=== PATIENT | female | born 1980 | race Caucasian/White ===

== ENCOUNTER 2017-07-13 15:31 | Inpatient (IN) | payer OTHER ==
[~2017-07-13] VITALS: Ht 157.5 cm; Wt 78.5 kg
--- NOTE | 2017-07-13 15:53 | NUR ---
PT BIB FAMILY MEMBER FOR C/O FEELING SHORTNESS OF BREATH WITH COUGH, PT REPORTS HX OF ASTHMA AND REPORTS USING HER VENTOLIN AND QVAR TODAY WITH NO RELIEF, PT REPORTS "EVER SINCE HALLOWEEN NIGHT" PT HAS HAD SX OF SOB AND COUGH, ACTIVE CONGESTED COUGHING NOTED AT THIS TIME WITH WHEEZING HEARD UPON AUSCULTATION, RR 20-22, RESP EVEN AND SLIGHTLY LABORED UPON SPEAKING, PT DENIES CHEST PAIN BUT REPORTS FEELING "TIGHTNESS 1-2/10" TO PTS UPPER BACK, PT IN NO ACUTE DISTRESS, PLACED ON FULL MONITORS, CALL LIGHT WITHIN REACH, WILL CONTINUE TO MONITOR
--- NOTE | 2017-07-13 15:56 | NUR ---
RT AT BEDSIDE ADMINISTERED BREATHING TREATMENT PER NURSING PROTOCOL
--- NOTE | 2017-07-13 16:48 | NUR ---
MSE COMPLETED BY DR. STUART
--- NOTE | 2017-07-13 16:56 | NUR ---
RT AT BEDSIDE FOR ORDERED BREATHING TX AT THIS TIME
--- NOTE | 2017-07-13 17:09 | NUR ---
PT MEDICATED PER MD ORDER, PLEASE SEE EMAR, PT TOLERATED WELL, FAMILY MEMBER AT BEDSIDE, PT PLACED ON FULL MONITORS, CALL LIGHT WITHIN REACH, WILL CONTINUE TO MONITOR
--- NOTE | 2017-07-13 18:21 | NUR ---
PT AMBULATORY WITH STEADY GAIT TO RESTROOM AND BACK TO TX AREA WITH NO INCIDENCE
--- NOTE | 2017-07-13 18:42 | NUR ---
DR. STUART AT BEDSIDE DISCUSSING POC WITH PT AT THIS TIME
--- NOTE | 2017-07-13 18:50 | NUR ---
LAB AT BEDSIDE FOR BLOOD DRAW AND BLOOD CULTURES
--- NOTE | 2017-07-13 19:10 | NUR ---
[facility] SWAB COLLECTED AND SENT TO LAB
--- NOTE | 2017-07-13 19:10 | NUR ---
RT AT BEDSIDE FOR ABGS
--- NOTE | 2017-07-13 19:15 | NUR ---
RECEIVED REPORT FROM CARLA ZHU.
[2017-07-13] MEDS ORDERED: SINGULAIR10 MG PO (19:16)
[2017-07-13] MEDS ORDERED: VENTOLIN H0.09 MG/A1 IH (19:17)
[2017-07-13] MEDS ORDERED: QVAR0.08 MG/Ac IH (19:17)
[2017-07-13] MEDS ORDERED: CLARITIN10 MG PO (19:17)
[2017-07-13 19:33] LABS: BASOPHIL % 0.1 % (0-2); PLATELET COUNT 221 x10^3mcL (130-400); RED CELL DISTRIBUTION WIDTH 13.2 % (11.5-14.5)
[2017-07-13 19:39] LABS: CARBON DIOXIDE 24.6 mmol/L (21-32); CHLORIDE SERUM 103 mmol/L (98-107); CREATININE SERUM 0.8 mg/dL (0.6-1.0); GFR1 > 60 mL/min; GLUCOSE SERUM 104 mg/dL (74-106); POTASSIUM SERUM 3.2 mmol/L (3.5-5.1); SODIUM SERUM 138 mmol/L (136-145)
[2017-07-13 19:48] LABS: ALBUMIN 3.7 g/dL (3.4-5.0); ALKALINE PHOSPHATASE 79 U/L (46-116); ALT/SGPT 23 U/L (14-59); AST/SGOT 15 U/L (15-37); BILIRUBIN TOTAL 0.38 mg/dL (0.20-1.00); HDL CHOLESTEROL 38 mg/dL (40-60); LIPASE 94 IU/L (73-393)
[2017-07-13 19:51] LABS: CHOLESTEROL 204 mg/dL (<200); CHOLESTEROL/HDL RATIO 5.4; TRIGLYCERIDES 287 mg/dL (<150)
[2017-07-13 19:55] LABS: FREE T4 0.76 ng/dL (0.76-1.46); FREE THYROXINE INDEX 2.5 ug/dL (1.4-4.5); T4(THYROXINE) 8.9 ug/dL (4.7-13.3)
[2017-07-13 20:09] LABS: T3 TOTAL 1.27 ng/mL
--- NOTE | 2017-07-13 20:30 | NUR ---
PT RESTING IN BED AFTER USING RESTROOM. NO SIGNS OF DISTRESS AT THIS TIME.
[2017-07-13 20:33] LABS: microscopic required? YES; urine erythrocyte 1+ (NEGATIVE)
[2017-07-13 20:42] LABS: AMPHETAMINE QUAL UR NONE DETECTED (NEG <=1000)
[2017-07-13 21:00] LABS: PHOSPHOROUS 2.6 mg/dL (2.5-4.9)
--- NOTE | 2017-07-13 21:16 | NUR ---
PT RESTING IN BED WITH SISTER AT BEDSIDE. NO SIGNS OF DISTRESS AT THIS TIME.
[2017-07-13 22:25] VITALS: BP 142/92
--- NOTE | 2017-07-13 22:25 | NUR ---
V/S AFTER NS BOLUS FROM ER FF: JB=598/92 IE=349 JOJ=550 RR=16 TEMP=97.1 O2 SAT=97% ON RA.
--- NOTE | 2017-07-13 22:31 | NUR ---
RECEIVED PATIENT FROM ED VIA GUERNEY, PATIENT ALERT AND ORIENTED, TELE # 1 ST, IV ACCESS TO LEFT HAND WNL, NO C/O PAIN AT THIS TIME, ORIENTED PATIENT TO ROOM AND SURROUNDINGS, BED IN LOW POSITION, BED RAILS UP X 2, CALL LIGHT WITHIN REACH, WILL ENDORSE CARE TO PRIMARY NURSE LIAM Grijalva RN
[2017-07-13 22:48] VITALS: BP 142/92
[2017-07-14 01:10] VITALS: BP 142/92
--- NOTE | 2017-07-14 01:19 | NUR ---
RICHY CARTER REGARDING LATEST LACTIC ACID OF 3.8 ( PREVIOUS=2.9).
[2017-07-14 05:35] VITALS: BP 119/69
[2017-07-14 06:05] LABS: PLATELET COUNT 229 x10^3mcL (130-400); RED CELL DISTRIBUTION WIDTH 13.3 % (11.5-14.5)
--- NOTE | 2017-07-14 06:09 | NUR ---
PT RESTING COMFORTABLY ON BED. SHE SLEPT ON AND OFF. SHE VERBALIZED SHE IS BREATHING BETTER. SHE HAD NO C/O PAIN. LATEST O2 SAT IS 96 % ON RA. SHE IS AMBULATORY W/O DIFFICULTY.
[2017-07-14 06:16] LABS: CALCIUM 8.4 mg/dL (8.5-10.1); CARBON DIOXIDE 20.8 mmol/L (21-32); CHLORIDE SERUM 108 mmol/L (98-107); CREATININE SERUM 0.8 mg/dL (0.6-1.0); GFR1 > 60 mL/min; GLUCOSE SERUM 146 mg/dL (74-106); POTASSIUM SERUM 3.9 mmol/L (3.5-5.1); SODIUM SERUM 139 mmol/L (136-145)
--- NOTE | 2017-07-14 06:40 | NUR ---
RICHY CARTER REGARDING LATEST LACTIC ACID OF 2.1 ( PREVIOUS=3.8).
[2017-07-14 06:46] LABS: BASOPHIL % 0 % (0-2)
--- NOTE | 2017-07-14 07:48 | NUR ---
A+OX4, NO RESPIRATORY DISTRESS NOTED, DENIES PAIN, TELE 1, PULSES MODERATE AND EQUAL INDIO, NO EDEMA PRESENT, LUNG SOUNDS: WHEEZING, TOELRATING RA, BOWEL SOUNDS ACTIVE, VOIDING, AMBULATORY, SKIN INTACT, IV IN LH WITH NS @ 120 ML/HR, SITE WNL, CL 108, CO2 20.8, LACTIC ACID 2.1, CA 8.4.
--- NOTE | 2017-07-14 08:30 | NUR ---
PT RECEIVING BREATHING TREATMENT FROM RT.
--- NOTE | 2017-07-14 08:50 | NUR ---
PT RESTING IN BED, NO RESPIRATORY DISTRESS NOTED, DENIES PAIN.
[2017-07-14 09:21] VITALS: BP 140/82
--- NOTE | 2017-07-14 09:24 | NUR ---
PT RESTING IN BED, NO RESPIRATORY DISTRESS NOTED, DENIES PAIN.
--- NOTE | 2017-07-14 10:24 | NUR ---
PT RESTING IN BED, NO RESPIRATORY DISTRESS NOTE, DENIES PAIN, FAMILY AT BEDSIDE.
--- NOTE | 2017-07-14 11:36 | NUR ---
PT RESTING IN BED, NO RESPRIATORY DISTRESS NOTED, DENIES PAIN.
--- NOTE | 2017-07-14 12:36 | NUR ---
PT RESTING IN BED, NO RESPIRATORY DISTRESS NOTED, DENIES PAIN.
--- NOTE | 2017-07-14 13:12 | NUR ---
PT RESTING IN BED, NO RESPIRATORY DISTRESS NOTED, DENIES PAIN.
[2017-07-14 13:47] VITALS: BP 140/76
--- NOTE | 2017-07-14 14:33 | NUR ---
PT RESTING IN BED, NO RESPIRATORY DISTRESS NOTED, DENIES PAIN.
--- NOTE | 2017-07-14 15:38 | NUR ---
PT RESTING IN BED, NO RESPIRATORY DISTRESS NOTED, DENIES PAIN.
[2017-07-14 16:32] VITALS: BP 130/81
--- NOTE | 2017-07-14 17:27 | NUR ---
PT RESTING IN BED, NO RESPIRATORY DISTRESS NOTED, DENIES PAIN.
--- NOTE | 2017-07-14 18:34 | NUR ---
PT RESTING IN BED, NO RESPIRATORY DISTRESS NOTEED, DENIES PAIN.
--- NOTE | 2017-07-14 20:00 | NUR ---
PT SEEN, RESTING IN BED, ALERT AND ORIENTED, DENIES HEADACHE OR DIZZINESS, BREATHING EVEN AND UNLABORED, MILD SOB ON EXERTION, LUNG SOUNDS DIMINISHED WITH EXP WHEEZING, ON AND OFF COUGH, RT PROTOCOL, ON TELE#1 ST, DENIES CHEST PAIN, IVF INFUSING WELL, PULSES PALPABLE, NO EDEMA NOTED, AMBULATORY WITH STEADY GAIT, ABD OBESE WITH ACTIVE BS, NO BM AT THIS TIME, DENIES ABD PAIN, VOIDING FREELY, NO DISTRESS NOTED, WILL KEEP TO MONITOR.
[2017-07-14 20:30] VITALS: BP 105/70
[2017-07-15 05:26] VITALS: BP 107/70
--- NOTE | 2017-07-15 06:04 | NUR ---
PT ASLEEP BUT EASILY AROUSABLE, SLEPT MOST OF NIGHT, IVF INFUSING WELL, RT PROTOCOL SCHEDULED, BREATHING EVEN AND UNLABORED ON ROOM AIR WITH ON AND OFF COUGH, ON TELE#1 ST, NO DISTRESS NOTED, WILL KEEP TO MONITOR.
[2017-07-15 06:22] LABS: PLATELET COUNT 267 x10^3mcL (130-400); RED CELL DISTRIBUTION WIDTH 13.5 % (11.5-14.5)
[2017-07-15 06:29] LABS: CALCIUM 8.7 mg/dL (8.5-10.1); CARBON DIOXIDE 21.8 mmol/L (21-32); CHLORIDE SERUM 107 mmol/L (98-107); CREATININE SERUM 0.7 mg/dL (0.6-1.0); GFR1 > 60 mL/min; GLUCOSE SERUM 132 mg/dL (74-106); POTASSIUM SERUM 4.3 mmol/L (3.5-5.1); SODIUM SERUM 140 mmol/L (136-145)
[2017-07-15 06:31] LABS: BASOPHIL % 0 % (0-2)
--- NOTE | 2017-07-15 07:30 | NUR ---
ALERT AND ORIENTED. BREATHING FREELY ON RA. REG DIET ORDERED. DOES NOT APPEAR TO BE IN RESP DISTRESS. SAYS SHE IS FEELING MUCH BETTER. NO C/O PAIN. INDEPENDENT W ADL'S. TELE # 1 ST. HR 97. ON RT PROTOCOL, LEVAQUIN AND SOLUMEDROL IV ABX. CALL LIGHT WITHIN REACH. NS INFUSING 120M CC HOUR.
[2017-07-15 09:36] VITALS: BP 130/80
--- NOTE | 2017-07-15 12:48 | NUR ---
PT BECAME FLUSHED AND HAD ITCHING AT IV SITE AFTER LEVAQUIN IV WAS ADMIN. NEW ORDER TO DC LEVAQUIN, START ZITHROMAX PO AND ROCEPHIN IV.
[2017-07-15 13:58] VITALS: BP 134/84
[2017-07-15 16:42] VITALS: BP 134/85
--- NOTE | 2017-07-15 18:38 | NUR ---
ALERT AND ORIENTED. BREATHING FREELY ON RA. CONTINUES ON ROCEPHIN, SOLUMEDROL AND ZITHROMAX PO. AMBULATED IN HALLWAY. NS INFUSING 120 CC HOUR. VSS. INDEPENDENT W ADL'S. CALL LIGHT WITHIN REACH.
--- NOTE | 2017-07-15 19:39 | NUR ---
PT SEEN, RESTING IN BED, ALERT AND ORIENTED, DENIES HEADACHE OR DIZZINESS, BREATHING EVEN AND UNLABORED, NO RESP DISTRESS OR SOB NOTED, LUNG SOUNDS DIMINISHED WITH EXP WHEEZING, IS ABLE TO REACH 1750ML, CONT TO ENCOURAGE PT TO USE IS WHILE AWAKE, ON AND OFF COUGH, RT PROTOCOL, ON TELE#1 SR, DENIES CHEST PAIN, IVF INFUSING WELL, PULSES PALPABLE, NO EDEMA NOTED, AMBULATORY WITH STEADY GAIT, ABD OBESE WITH ACTIVE BS, NO BM AT THIS TIME, DENIES ABD PAIN, VOIDING FREELY, NO DISTRESS NOTED, WILL KEEP TO MONITOR.
[2017-07-15 20:43] VITALS: BP 134/83
--- NOTE | 2017-07-16 05:32 | NUR ---
PT AWAKE AND RESTING IN BED, SLEPT MOST OF NIGHT, BREATHING EVEN AND UNLABORED ON ROOM AIR WITH NO RESP DISTRES NOTED, CONDTION NO CHANGE, NO DISTRESS NOTED, WILL KEEP TO MONITOR.
[2017-07-16 05:35] VITALS: BP 129/79
[2017-07-16 07:22] LABS: PLATELET COUNT 256 x10^3mcL (130-400); RED CELL DISTRIBUTION WIDTH 13.8 % (11.5-14.5)
[2017-07-16 07:24] LABS: BASOPHIL % 0 % (0-2)
--- NOTE | 2017-07-16 07:30 | NUR ---
ALERT AND ORIENTED. INDEPENDENT W ADL'S. AMBULATES OCC, BREATHING FREELY ON RA. LUNG SOUNDS CLEAR. OCC PRODUCTIVE COUGH. CONTINUES ON RT PROTOCOL. I.S. AT BEDSIDE. ENCOURAGED PT TO USE IT 10 X Q 1 HOUR. VSS. TELE # 1 SR. NS INFUSING 120 CC HOUR. CALL LIGHT WITHIN REACH.
[2017-07-16 09:22] VITALS: BP 139/94
[2017-07-16 11:05] VITALS: BP 139/94
[2017-07-16] MEDS ORDERED: ZIT250 PO (14:14)
[2017-07-16] MEDS ORDERED: XOPENEX HF0.045 MG/1 INH (14:16)
[2017-07-16] MEDS ORDERED: LAC PO (14:16)
[2017-07-16] MEDS ORDERED: MEDDP PO (14:18)
--- NOTE | 2017-07-16 15:16 | NUR ---
TO BE DC'D TO HOME. HAS A F/U [facility] W/ PCP. PRESCRIPTIONS ESCRIPTED TO [facility]. ALL DC INSTRUCTIONS REVIEWED WITH AND SIGNED BY PT. TELE # 1 RETURNED TO TELE STATION. IV DC'D.
== END 2017-07-16 15:46 | disposition home or self-care (01) | DRG 720 ==
LOC: ED 15:31 → DU 18:50
PROVIDERS: Specialist; Student in an Organized Health Care Education/Training Program; ADMIT Family Medicine Sports Medicine
DX: A41.9 Sepsis, unspecified organism (principal); J96.00 Acute respiratory failure, unspecified whether with hypoxia or hypercapnia; J45.909 Unspecified asthma, uncomplicated; E87.6 Hypokalemia; E78.5 Hyperlipidemia, unspecified; R31.9 Hematuria, unspecified; J18.9 Pneumonia, unspecified organism
CPT/HCPCS: 36600; 83880; 84439; 94150; J0171; J0456; J0696; J1956; J2920; J2930; J3475; J7030; J7040; J7050; J7512; J7613; J7620; J7633; J7644

== ENCOUNTER 2020-10-01 06:36 | Emergency (ER) | payer OTHER ==
[~2020-10-01] VITALS: Ht 157.5 cm; Wt 78.9 kg
[~2020-10-01 06:36] MED LIST: CLARITIN10 MG PO; LAC PO; MEDDP PO; QVAR0.08 MG/Ac IH; SINGULAIR10 MG PO; VENTOLIN H0.09 MG/A1 IH; XOPENEX HF0.045 MG/1 INH; ZIT250 PO
[2020-10-01 06:40] VITALS: Ht 157.5 cm; Wt 78.9 kg
[2020-10-01 07:05] VITALS: BP 130/96
== END 2020-10-01 08:18 | disposition home or self-care (01) ==
LOC: ED 06:36
DX: R07.89 Other chest pain (principal); J45.909 Unspecified asthma, uncomplicated; Z20.822 Contact with and (suspected) exposure to COVID-19
CPT/HCPCS: J1885; U0003